=== PATIENT | female | born 1950 | race Two or more races ===

== ENCOUNTER 2019-09-30 07:14 | Outpatient (CLI) | payer OTHER ==
[~2019-09-30 07:14] MED LIST: DOLOGESIC-DF 51 EACH PO
== END 2019-09-30 07:41 | disposition home or self-care (01) ==
LOC: LAB 07:14
PROVIDERS: ATTEND Internal Medicine Hematology & Oncology
DX: D55.0 Anemia due to glucose-6-phosphate dehydrogenase [G6PD] deficiency (principal); C50.311 Malignant neoplasm of lower-inner quadrant of right female breast

== ENCOUNTER 2019-10-08 10:16 | Outpatient (CLI) | payer OTHER | END 2019-10-08 10:36 | disposition home or self-care (01) | LOC: NUCLEAR 10:16 | PROVIDERS: ATTEND Internal Medicine Hematology & Oncology | DX: C50.311 Malignant neoplasm of lower-inner quadrant of right female breast (principal); D05.11 Intraductal carcinoma in situ of right breast; Z17.0 Estrogen receptor positive status [ER+] | CPT/HCPCS: 77080; A9552 ==

== ENCOUNTER 2019-11-04 10:50 | Outpatient (CLI) | payer OTHER | END 2019-11-04 10:58 | disposition home or self-care (01) | LOC: SONOGRAMA 10:50 | PROVIDERS: ATTEND Pathology Anatomic Pathology | DX: E04.1 Nontoxic single thyroid nodule (principal) ==